=== PATIENT | male | born 1970 | race Caucasian/White ===

== ENCOUNTER 2020-11-08 21:00 | Emergency (ER) | payer OTHER, MEDICAID ==
[~2020-11-08] VITALS: Ht 167.6 cm; Wt 148.5 kg
[~2020-11-08 21:00] MED LIST: ANAPROX DS550 MG PO; BIAXIN500 MG PO; CIPRODEX 0.3%-7.5 ML OT; CLARITIN10 MG PO; MEDROL DOSEPAK4 MG PO; PROVENTIL0.09 MG/AC IH; TRAMADOL HCL50 MG PO; WYMOX500 MG PO
[2020-11-08 21:22] LABS: BASO # 0.1 10*3/uL (0.0-0.1); EOS # 0.5 10*3/uL (0.0-0.4); EOS % 5.8 % (1.0-4.0); HEMATOCRIT 50.1 % (42.0-52.0); LYMPH # 2.2 10*3/uL (1.3-4.4); LYMPH % 27.1 % (27.0-41.0); MEAN CELL VOLUME 93.1 fl (80.0-94.0); MEAN CORPUSCULAR HGB 29.7 pg (27.0-31.0); MEAN CORPUSCULAR HGB CONC 31.9 g/dl (33.0-37.0); MEAN PLATELET VOLUME 12.5 fl (9.6-12.3); MONO # 1.1 10*3/uL (0.1-1.0); MONO % 12.7 % (3.0-9.0); NEUT # 4.4 10*3/uL (2.3-7.9); NEUT % 53.2 % (47.0-73.0); PLATELET COUNT AUTOMATED 183 10*3/uL (130-400); RED BLOOD COUNT 5.38 10*6/uL (4.50-5.90); RED CELL DISTRI WIDTH 13.3 % (0-14.5); WHITE BLOOD COUNT 8.2 10*3/uL (4.8-10.8)
[2020-11-08 21:41] LABS: ALBUMIN 3.9 gm/dl (3.1-4.5); ALKALINE PHOSPHATASE 54 U/L (45-117); BUN 10 mg/dl (7-24); CHLORIDE 107 mmol/L (98-107); CREATININE 0.82 mg/dL (0.70-1.30); SGOT/AST 35 IU/L (3-35); SGPT/ALT 70 U/L (12-78); SODIUM 140 mmol/L (136-145); TOTAL PROTEIN 7.4 gm/dL (6.4-8.2)
[2020-11-08 21:48] LABS: TROPONIN I < 0.015 ng/ml (<0.045)
[2020-11-08 22:24] VITALS: BP 123/76
== END 2020-11-08 22:25 | disposition home or self-care (01) ==
LOC: ED 21:00
PROVIDERS: Internal Medicine
DX: R07.9 Chest pain, unspecified (principal)

== ENCOUNTER → 2022-05-27 | Outpatient (CLI) | payer OTHER, MEDICAID | END | disposition home or self-care (01) | LOC: RAD 12:56 | PROVIDERS: ATTEND Internal Medicine | DX: M47.816 Spondylosis without myelopathy or radiculopathy, lumbar region (principal); M25.78 Osteophyte, vertebrae ==

== ENCOUNTER → 2024-11-25 | Outpatient (CLI) | payer OTHER, MEDICAID ==
[2024-11-25 09:39] LABS: BASO # 0.1 10*3/uL (0.0-0.1); BASO % 1.2 % (0.0-1.0); EOS # 0.0 10*3/uL (0.0-0.4); EOS % 0.1 % (1.0-4.0); MEAN CELL VOLUME 96.2 fl (80.0-94.0); MEAN CORPUSCULAR HGB 31.6 pg (27.0-31.0); MEAN PLATELET VOLUME 11.6 fl (9.6-12.3); MONO # 0.8 10*3/uL (0.1-1.0); MONO % 10.9 % (3.0-9.0); NEUT # 5.3 10*3/uL (2.3-7.9); NEUT % 71.6 % (47.0-73.0); NUCLEATED RED BLOOD CELL 0.0 % (0.0-0.0); NUCLEATED RED BLOOD CELL 0.0 10*3/uL (0.0-0.0); PLATELET COUNT AUTOMATED 168 10*3/uL (130-400); RED CELL DISTRI WIDTH 13.4 % (0-14.5)
[2024-11-25 10:24] LABS: BUN 12 mg/dl (9-23); LDL CHOLESTEROL 135 mg/dL (9-159); SGPT/ALT 30 U/L (5-49)
[2024-11-25 10:26] LABS: VITAMIN D, 25-HYDROXY 28.0 ng/mL (30-100)
== END | disposition home or self-care (01) ==
LOC: LAB 09:20
DX: E53.8 Deficiency of other specified B group vitamins (principal); E55.9 Vitamin D deficiency, unspecified; Z11.4 Encounter for screening for human immunodeficiency virus [HIV]; Z11.59 Encounter for screening for other viral diseases; Z00.00 Encounter for general adult medical examination without abnormal findings; Z79.899 Other long term (current) drug therapy